=== PATIENT | male | born 1975 | race African-American/Black ===

== ENCOUNTER 2017-06-16 10:19 | Emergency (ER) | payer SELFPAY ==
[~2017-06-16] VITALS: Ht 167.6 cm; Wt 82.1 kg
[2017-06-16 10:49] VITALS: BP 154/99
--- NOTE | 2017-06-16 11:04 | RAD ---
Examination: 3 views of the right foot History: History of right foot pain for one week after kicking a dumbbell Comparison: None available : Findings The alignment of the tarsal bones, tarsometatarsal joints, metatarsophalangeal joints, interphalangeal joint grossly appears unremarkable. There is no acute fracture or dislocation identified. Impression: No acute osseous findings.
--- NOTE | 2017-06-16 11:10 | PHYS DOC ---
Past Medical History Past Medical History: Asthma Past Surgical History: No Surgical History Alcohol Use: Occasionally Drug Use: None Adult General Chief Complaint Chief Complaint: FOOT INJURY PAIN HPI HPI Patient is a 41 year old male presents to the emergency department stating that he stepped his right second toe on a weight approximately one week ago. Patient complaints is still having swelling and discomfort to the toe. Patient states he has increased pain with ambulation. His been taken Tylenol and ibuprofen with minimal relief. Patient also states that he has pain up into the foot area. Patient denies any open up the skin. Review of Systems Review of Systems Constitutional: Denies fever or chills [] Eyes: Denies change in visual acuity, redness, or eye pain [] HENT: Denies nasal congestion or sore throat [] Respiratory: Denies cough or shortness of breath [] Cardiovascular: No additional information not addressed in HPI [] GI: Denies abdominal pain, nausea, vomiting, bloody stools or diarrhea [] : Denies dysuria or hematuria [] Musculoskeletal: Denies back pain. Complaint of right second toe and foot pain Integument: Denies rash or skin lesions [] Neurologic: Denies headache, focal weakness or sensory changes [] Endocrine: Denies polyuria or polydipsia [] Allergies Allergies Allergies Coded Allergies Type Severity Reaction Last Updated Verified Penicillins Allergy Unknown 09/11/13 Yes Physical Exam Physical Exam Constitutional: Well developed, well nourished, no acute distress, non-toxic appearance. [] HENT: Normocephalic, atraumatic, bilateral external ears normal, oropharynx moist, no oral exudates, nose normal. [] Eyes: PERRLA, EOMI, conjunctiva normal, no discharge. [] Neck: Normal range of motion, no tenderness, supple, no stridor. [] Cardiovascular:Heart rate regular rhythm Lungs & Thorax: No respiratory distress noted. Skin: Warm, dry, no erythema, no rash. [] Back: No tenderness Extremities: Right second toe, foot tenderness, patient with significant swelling noted to the second toe area with ecchymosis noted. Patient with decreased sensation noted to the bottom part of the toe. No cyanosis, no clubbing, ROM intact, no edema. [] Neurologic: Alert and oriented X 3, normal motor function, normal sensory function, no focal deficits noted. [] Psychologic: Affect normal, judgement normal, mood normal. [] Current Patient Data Vital Signs Vital Signs Date Time Temp Pulse Resp B/P (MAP) Pulse Ox O2 Delivery O2 Flow Rate FiO2 06/16/17 10:49 98.1 99 18 95 Room Air 98.1 EKG EKG [] Radiology/Procedures Radiology/Procedures [][facility] [address] [place] [address] IMAGING REPORT Signed PATIENT: PHILLIP ESQUIVEL ACCOUNT: [id number] : 1975 LOCATION: ER AGE: 41 SEX: M EXAM STATUS: PRE ER ORD. PHYSICIAN: SWAPNA ALVAREZ APRN REASON: injury and pain PROCEDURE: FOOT RIGHT 3V Examination: 3 views of the right foot History: History of right foot pain for one week after kicking a dumbbell Comparison: None available : Findings The alignment of the tarsal bones, tarsometatarsal joints, metatarsophalangeal joints, interphalangeal joint grossly appears unremarkable. There is no acute fracture or dislocation identified. Impression: No acute osseous findings. DICTATED and SIGNED BY: SHERYL CRUZ MD DATE: 06/16/17 1059 CC: SWAPNA ALVAREZ APRN; NON,STAFF ~ Course & Med Decision Making Course & Med Decision Making Pertinent Labs and Imaging studies reviewed. (See chart for details) X-rays were negative for any bony abnormalities. Patient will be encouraged to use ice packs on 20 minutes off treatment several times a day elevation as much as possible. Patient will also be encouraged to follow-up with orthopedic for any further pain and discomfort. Recommended Tylenol and ibuprofen for pain and discomfort. We'll place an Michael wrap and a postop shoe in which she can wear for the next week. Signs symptoms to return back to emergency department as been provided. All questions and concerns been answered at patient's bedside. [] Dragon Disclaimer Dragon Disclaimer This electronic medical record was generated, in whole or in part, using a voice recognition dictation system. Departure Departure Impression: Primary Impression: Contusion of second toe, right Additional Impression: Right foot sprain Disposition: HOME, SELF-CARE Condition: STABLE Referrals: NON,STAFF (PCP) LORENZO GRANADOS II, MD Patient Instructions: Foot Sprain-Brief, Toe Injuries and Amputations Additional Instructions: Your x-rays were negative for any bony abnormalities. Wear the Michael wrap in the postop shoe for the next week. Ice packs on 20 minutes off 20 minutes several times a day. Elevation as much as possible. Tylenol or ibuprofen for pain and discomfort. Follow-up with orthopedic in the next week. Return back to emergency prior signs symptoms of become worse. Problem Qualifiers Primary Impression: Contusion of second toe, right Encounter type: initial encounter Qualified Codes: S90.121A - Contusion of right lesser toe(s) without damage to nail, initial encounter Additional Impression: Right foot sprain Encounter type: initial encounter Qualified Codes: S93.601A - Unspecified sprain of right foot, initial encounter SWAPNA ALVAREZ APRN Jun 16, 2017 11:10
== END 2017-06-16 11:29 | disposition home or self-care (01) ==
LOC: ER 10:19
DX: S93.601A Unspecified sprain of right foot, initial encounter (principal); S90.121A Contusion of right lesser toe(s) without damage to nail, initial encounter; J45.909 Unspecified asthma, uncomplicated; Z88.0 Allergy status to penicillin; X58.XXXA Exposure to other specified factors, initial encounter; Y93.89 Activity, other specified; Y92.89 Other specified places as the place of occurrence of the external cause; Y99.8 Other external cause status
CPT/HCPCS: 73630; 99284